=== PATIENT | male | born 1950 | race Caucasian/White ===

== ENCOUNTER 2018-10-12 12:08 | Inpatient (IN) | payer OTHER | END 2018-10-13 00:05 | disposition left against medical advice (07) | LOC: YASAS 12:08 → Y6N 16:45 ==

== ENCOUNTER 2018-10-13 08:48 | Emergency (ER) | payer OTHER | END 2018-10-13 10:55 | disposition home or self-care (01) | LOC: JER 08:48 ==

== ENCOUNTER 2018-10-13 11:51 | Inpatient (IN) | payer OTHER | END 2018-10-15 09:40 | disposition left against medical advice (07) | LOC: YASAS 11:51 → Y3N 18:49 ==